=== PATIENT | female | born 1935 | race Caucasian/White ===

== ENCOUNTER 2021-02-19 11:40 | Inpatient (IN) | payer MEDICARE, OTHER ==
[~2021-02-19] VITALS: Ht 162.6 cm; Wt 74.8 kg
[2021-02-19 18:27] VITALS: BP 127/57
[2021-02-19] MEDS ORDERED: ATOR20TA PO (18:27)
[2021-02-19] MEDS ORDERED: MULT-439 PO (18:27)
[2021-02-19] MEDS ORDERED: OMEG1CAP PO (18:27)
[2021-02-19] MEDS ORDERED: THIA100T70 PO (18:27)
[2021-02-19] MEDS ORDERED: CHOL100062 PO (18:27)
[2021-02-19] MEDS ORDERED: VITA-354 PO (18:27)
[2021-02-19] MEDS ORDERED: VALS1TAB7 PO (18:27)
[2021-02-19] MEDS ORDERED: ENOX40DI SQ (18:27)
[2021-02-19] MEDS ORDERED: METO-356 PO (18:27)
--- NOTE | 2021-02-19 18:39 | NUR ---
Admitted patient from [facility] for acute rehab. Patient is alert and oriented x4. No respiratory distress noted. Routine admission care done. Dr. Michaud and Dr. Jara both notified of admission.
[2021-02-19] MEDS ORDERED: OXYCODONE HCL 5 MG TABLET PO PRN ×2 (18:45)
--- NOTE | 2021-02-19 19:25 | NUR ---
Patient is visiting with family at bedside. In no acute distress. Endorsed to next shift for continuity of care.
--- NOTE | 2021-02-19 19:30 | NUR ---
Patient in bed, awake, with family at bedside. No s/s of respiratory distress, no complaint of pain at this time. Routine admission care done. Plan of care initiated.
[2021-02-19 20:00] VITALS: BP 122/58
[2021-02-19] MEDS: ATORVASTATIN 20 MG TABLET PO SCH (21:00)
[2021-02-20 04:00] VITALS: BP 126/63
--- NOTE | 2021-02-20 05:37 | NUR ---
Shift End Report: VS stable. Slept well. Refused Atosvastatin due last night. No complaint presented all night. All needs attended and anticipated. No significant event reported. Continue care as planned.
[2021-02-20 08:52] VITALS: BP 125/59
[2021-02-20] MEDS ORDERED: HYDROCHLOROTHIAZIDE 12.5 MG CAPSULE PO SCH (09:00)
[2021-02-20] MEDS ORDERED: VALSARTAN 160 MG TABLET PO SCH (09:00)
[2021-02-20] MEDS ORDERED: Medication Not On Formulary EA (Valsartan/Hydrochlorothiazide (Diovan Hct 320-12.5 Mg Ta PO SCH (09:00)
[2021-02-20] MEDS: MULTIVITAMINS,THERAPEUTIC TABLET PO SCH (09:07)
[2021-02-20] MEDS: OMEGA-3 FATTY ACIDS/FISH OIL CAPSULE PO SCH (09:07)
[2021-02-20] MEDS: CHOLECALCIFEROL 1,000 UNIT TABLET PO SCH (09:07)
[2021-02-20] MEDS: THIAMINE HCL 100 MG TABLET PO SCH (09:07)
[2021-02-20] MEDS: METOPROLOL SUCCINATE XL 25 MG TAB.SR.24H PO SCH (09:09)
[2021-02-20] MEDS: VITAMIN E 400 UNITS CAPSULE PO SCH (09:09)
[2021-02-20] MEDS: ENOXAPARIN SODIUM 30 MG/0.3 ML DISP.SYRIN SUBCUT SCH (09:11)
[2021-02-20 15:26] VITALS: BP 103/47
[2021-02-20 20:07] VITALS: BP 129/57
[2021-02-20] MEDS: ATORVASTATIN 20 MG TABLET PO SCH (20:31)
[2021-02-20] MEDS: MORPHINE SULFATE SR 15 MG TABLET.SA PO SCH (20:31)
--- NOTE | 2021-02-21 03:36 | NUR ---
AAOx3-4 forgetful at times. VSS. No acute distress noted. Fall precautions maintained. Patient has a left hip ORIF by Dr Vu. Left hip dressing clean dry and intact. Pain meds given as scheduled. Tolerated well. No ill effects noted. Jay catheter intact draining yellow urine. I & O monitor.
[2021-02-21 04:45] VITALS: BP 140/62
[2021-02-21 07:03] LABS: HEMATOCRIT 31.3 % (31.2-41.9); MEAN CORPUSCULAR HEMOGLOBIN 30.4 uug (24.7-32.8); MEAN CORPUSCULAR VOLUME 90.5 fL (75.5-95.3); PLATELET COUNT (AUTO) 160 K/uL (179-408)
--- NOTE | 2021-02-21 07:15 | NUR ---
received patient in bed sleeping in stable position, no signs of any SOB, pain or discomfort noted at this time. call light within reach. fall precautions in place. will continue to monitor.
[2021-02-21 08:00] VITALS: BP 126/58
[2021-02-21 08:12] LABS: BILIRUBIN,TOTAL 1.2 mg/dL (0.2-1.0); CREATININE 1.1 mg/dL (0.6-1.3); MAGNESIUM 1.5 mg/dL (1.8-2.4); PHOSPHOROUS 1.9 mg/dL (2.5-4.9); POTASSIUM 4.1 mmol/L (3.5-5.1); TOTAL PROTEIN, SERUM 5.4 g/dL (6.4-8.2)
[2021-02-21 08:16] LABS: THYROID STIMULATING HORMONE 1.942 mIU/mL (0.358-3.740)
[2021-02-21] MEDS: THIAMINE HCL 100 MG TABLET PO SCH (08:43)
[2021-02-21] MEDS: CHOLECALCIFEROL 1,000 UNIT TABLET PO SCH (08:43)
[2021-02-21] MEDS: OMEGA-3 FATTY ACIDS/FISH OIL CAPSULE PO SCH (08:43)
[2021-02-21] MEDS: MULTIVITAMINS,THERAPEUTIC TABLET PO SCH (08:43)
[2021-02-21] MEDS: VITAMIN E 400 UNITS CAPSULE PO SCH (08:44)
[2021-02-21] MEDS: METOPROLOL SUCCINATE XL 25 MG TAB.SR.24H PO SCH (08:44)
[2021-02-21] MEDS: ENOXAPARIN SODIUM 30 MG/0.3 ML DISP.SYRIN SUBCUT SCH (08:45)
[2021-02-21] MEDS: MORPHINE SULFATE SR 15 MG TABLET.SA PO SCH ×2 (08:53→20:22)
[2021-02-21] MEDS ORDERED: MAGNESIUM OXIDE 400 MG TABLET PO ONE (10:00)
[2021-02-21] MEDS ORDERED: NEUTRA PHOS PACKET PO ONE (13:00)
[2021-02-21 16:34] LABS: EOSINOPHILS % (MANUAL) 1 % (0-8); LYMPHOCYTES % (MANUAL) 19 % (20-40); MONOCYTES % (MANUAL) 3 % (2-10); NEUTROPHILS % (MANUAL) 77 % (42-75)
[2021-02-21 16:48] VITALS: BP 104/48
[2021-02-21] MEDS: PROTEIN SUPPLEMENT (PROSTAT) 30 ML LIQUID PO SCH (16:52)
--- NOTE | 2021-02-21 18:15 | NUR ---
patient in bed sleeping but arousable. no complains of any SOB, pain or discomfort at this time. lopez catheter draining clear yellow urine. fall precautions in place. call light and belongings kept within reach. IV on right forearm intact and patent. will report to oncoming nurse.
[2021-02-21 20:51] VITALS: BP 109/49
--- NOTE | 2021-02-21 20:58 | NUR ---
awake upon initial rounds. AAOx2-3. Forgetful at times. VSS. Needs attended. All due meds given without difficulty. No acute distress noted. Jay catheter intact draining yellow urine. Right hip dressing clean dry and intact. Pain meds given as scheduled. Will monitor patient. Repositioned for comfort. Turned to sides.
[2021-02-22 04:22] VITALS: BP 121/58
[2021-02-22 06:46] LABS: CREATININE 1.2 mg/dL (0.6-1.3); MAGNESIUM 1.8 mg/dL (1.8-2.4); POTASSIUM 4.3 mmol/L (3.5-5.1)
--- NOTE | 2021-02-22 07:34 | NUR ---
Received awake, alert and oriented with some confusion. No respiratory distress. Jay catheter intact draining yellow urine. No hematuria noted. Right hip dressing clean and intact. Safety and fall precautions maintained. Call light in reach.
[2021-02-22 08:00] VITALS: BP 135/80
[2021-02-22] MEDS: THIAMINE HCL 100 MG TABLET PO SCH (08:50)
[2021-02-22] MEDS: CHOLECALCIFEROL 1,000 UNIT TABLET PO SCH (08:50)
[2021-02-22] MEDS: MULTIVITAMINS,THERAPEUTIC TABLET PO SCH (08:50)
[2021-02-22] MEDS: OMEGA-3 FATTY ACIDS/FISH OIL CAPSULE PO SCH (08:54)
[2021-02-22] MEDS: PROTEIN SUPPLEMENT (PROSTAT) 30 ML LIQUID PO SCH ×3 (08:55→17:09)
[2021-02-22] MEDS: MORPHINE SULFATE SR 15 MG TABLET.SA PO SCH (08:55)
[2021-02-22] MEDS: METOPROLOL SUCCINATE XL 25 MG TAB.SR.24H PO SCH (08:57)
[2021-02-22] MEDS: VITAMIN E 400 UNITS CAPSULE PO SCH (08:59)
[2021-02-22] MEDS: ENOXAPARIN SODIUM 30 MG/0.3 ML DISP.SYRIN SUBCUT SCH (09:00)
--- NOTE | 2021-02-22 11:00 | NUR ---
Spoke to dtr Esther and prefers for her mom not to have routine ms contin. Informed Dr. Jara.
[2021-02-22 12:00] VITALS: BP 126/42
[2021-02-22] MEDS ORDERED: OXYCODONE HCL 5 MG TABLET PO PRN ×2 (13:45)
--- NOTE | 2021-02-22 15:15 | NUR ---
INDIVIDUALIZED PLAN OF CARE
[2021-02-22 16:06] VITALS: BP 102/60
--- NOTE | 2021-02-22 18:56 | NUR ---
Patient is resting but easily arousable. In no acute distress. Jay catheter intact draining yellow urine. No hematuria noted. Due meds tolerated. Kept comfortable. Safety and fall precautions maintained. Needs attended.
[2021-02-22 20:00] VITALS: BP 128/54
[2021-02-22] MEDS ORDERED: MORPHINE SULFATE SR 15 MG TABLET.SA PO SCH (21:00)
[2021-02-23 04:50] VITALS: BP 130/55
[2021-02-23 08:00] VITALS: BP 121/48
[2021-02-23] MEDS: OMEGA-3 FATTY ACIDS/FISH OIL CAPSULE PO SCH (08:46)
[2021-02-23] MEDS: CHOLECALCIFEROL 1,000 UNIT TABLET PO SCH (08:46)
[2021-02-23] MEDS: MULTIVITAMINS,THERAPEUTIC TABLET PO SCH (08:46)
[2021-02-23] MEDS: THIAMINE HCL 100 MG TABLET PO SCH (08:46)
[2021-02-23] MEDS: VITAMIN E 400 UNITS CAPSULE PO SCH (08:51)
[2021-02-23] MEDS: PROPRANOLOL HCL 10 MG TABLET PO SCH ×4 (08:52→20:33)
[2021-02-23] MEDS: ENOXAPARIN SODIUM 30 MG/0.3 ML DISP.SYRIN SUBCUT SCH (08:53)
[2021-02-23] MEDS: PROTEIN SUPPLEMENT (PROSTAT) 30 ML LIQUID PO SCH ×3 (08:53→16:41)
[2021-02-23 09:03] LABS: HEMATOCRIT 34.4 % (31.2-41.9); MEAN CORPUSCULAR HEMOGLOBIN 29.9 uug (24.7-32.8); MEAN CORPUSCULAR VOLUME 90.7 fL (75.5-95.3); PLATELET COUNT (AUTO) 229 K/uL (179-408)
[2021-02-23 09:14] LABS: CREATININE 1.2 mg/dL (0.6-1.3); MAGNESIUM 1.7 mg/dL (1.8-2.4); PHOSPHOROUS 2.5 mg/dL (2.5-4.9); POTASSIUM 4.3 mmol/L (3.5-5.1); TOTAL PROTEIN, SERUM 5.9 g/dL (6.4-8.2)
[2021-02-23] MEDS: IV D5/ 0.9% NACL 1,000 ML IV PRN (09:30)
[2021-02-23] MEDS ORDERED: ACETAMINOPHEN 325 MG TABLET PO PRN (10:30)
--- NOTE | 2021-02-23 10:43 | NUR ---
daughter robbin called and said she does not want her mother Miss Velasco to get get any kind of pain medication such as oxy, only can give tylenol as needed, per daughter request dr jauregui made aware, discontinued oxy and started on tylenol per daughter request
[2021-02-23] MEDS: MAGNESIUM HYDROXIDE 30 ML LIQUID UDC PO PRN (14:18)
[2021-02-23] MEDS: ACETAMINOPHEN 325 MG TABLET PO SCH ×2 (15:03→21:03)
--- NOTE | 2021-02-23 15:42 | NUR ---
noted with nonblanchable redness to the left gluteal fold and blanchable to the right gluteal fold, also noted with open skin to right hip next to incision site, turned and repositioned patient in while in bed, patient is status post right hip surgery, incision site is clean and dry, well approximated, no malodor noted, no drainage noted from incision site, wound care consult in place, lopez catheter removed, will continue to monitor for voiding, patient is on hydration.
[2021-02-23 17:02] VITALS: BP 145/61
[2021-02-23 20:00] VITALS: BP 112/50
[2021-02-23 20:20] VITALS: BP 112/50
[2021-02-24] MEDS: IV D5/ 0.9% NACL 1,000 ML IV PRN ×2 (00:17→20:00)
[2021-02-24] MEDS: HYDROMORPHONE HCL 2 MG TABLET PO PRN (04:04)
[2021-02-24 04:09] VITALS: BP_SYST 141; BP_SYST 174; BP_DIAS 53; BP_DIAS 90
[2021-02-24] MEDS: ACETAMINOPHEN 325 MG TABLET PO SCH ×3 (05:29→21:23)
[2021-02-24 06:05] LABS: MEAN CORPUSCULAR HEMOGLOBIN 29.1 uug (24.7-32.8); MEAN CORPUSCULAR VOLUME 89.6 fL (75.5-95.3); PLATELET COUNT (AUTO) 250 K/uL (179-408)
[2021-02-24 06:28] LABS: CREATININE 1.2 mg/dL (0.6-1.3); MAGNESIUM 1.7 mg/dL (1.8-2.4); PHOSPHOROUS 1.6 mg/dL (2.5-4.9); POTASSIUM 3.9 mmol/L (3.5-5.1); TOTAL PROTEIN, SERUM 5.6 g/dL (6.4-8.2)
[2021-02-24 06:46] LABS: BILIRUBIN,TOTAL 1.1 mg/dL (0.2-1.0)
[2021-02-24 07:55] LABS: *BILIRUBIN,URIN NEGATIVE (NEGATIVE); *BLOOD, URINE TRACE (NEGATIVE); *CLARITY,URINE CLEAR (CLEAR); *COLOR,URINE YELLOW (YELLOW); *KETONES,URINE NEGATIVE (NEGATIVE); *UROBILINOGEN,URINE 0.2 E.U./dl (NORMAL); LEUKOCYTE ESTERASE ,URINE NEGATIVE (NEGATIVE); NITRITE, URINE NEGATIVE (NEGATIVE); UGLUCOSE NEGATIVE (NEGATIVE)
[2021-02-24 08:00] VITALS: BP 134/50
[2021-02-24] MEDS: MULTIVITAMINS,THERAPEUTIC TABLET PO SCH (08:29)
[2021-02-24] MEDS: OMEGA-3 FATTY ACIDS/FISH OIL CAPSULE PO SCH (08:29)
[2021-02-24] MEDS: FERROUS SULFATE 325 MG TABEC PO SCH (08:31)
[2021-02-24] MEDS: PROPRANOLOL HCL 10 MG TABLET PO SCH ×4 (08:31→20:43)
[2021-02-24] MEDS: CHOLECALCIFEROL 1,000 UNIT TABLET PO SCH (08:32)
[2021-02-24] MEDS: VITAMIN E 400 UNITS CAPSULE PO SCH (08:32)
[2021-02-24] MEDS: PROTEIN SUPPLEMENT (PROSTAT) 30 ML LIQUID PO SCH ×3 (08:32→16:51)
[2021-02-24] MEDS: ENOXAPARIN SODIUM 30 MG/0.3 ML DISP.SYRIN SUBCUT SCH (08:35)
[2021-02-24] MEDS: THIAMINE HCL 100 MG TABLET PO SCH (09:00)
[2021-02-24] MEDS ORDERED: MAGNESIUM OXIDE 400 MG TABLET PO ONE (09:15)
--- NOTE | 2021-02-24 09:41 | NUR ---
TELEPHONE BETTING CLERK (CAL) WAS CALLED IN FOR THIS ORDER. SHE ASKED ME TO TRANFER HER TO THE FLOOR SO SHE CAN TALK TO THE PATIENT'S NURSE.
[2021-02-24] MEDS ORDERED: PAMIDRONATE DISODIUM 60 MG in IV NORMAL SALINE 500 ML IV ONE (11:00)
[2021-02-24 12:32] LABS: BACTERIA,URINE FEW /HPF (NONE SEEN); SQUAMOUS EPITHELIAL CELL,UR FEW /HPF (NONE SEEN)
--- NOTE | 2021-02-24 15:08 | NUR ---
WOUND CARE CONSULT: PT OFF UNIT AT THIS TIME FOR PROCEDURE. DISCUSSED SKIN PROTECTION WITH NURSING STAFF. WILL SEE PT PT CONDITION PERMITS. IN AGREEMENT WITH PLAN OF CARE.
[2021-02-24] MEDS ORDERED: NEUTRA PHOS PACKET PO ONE (15:15)
[2021-02-24] MEDS: MAGNESIUM HYDROXIDE 30 ML LIQUID UDC PO PRN (16:50)
[2021-02-24] MEDS: ENSURE ENLIVE (VAN) 240 ML LIQUID PO SCH (16:51)
[2021-02-24 20:12] VITALS: BP 150/58
[2021-02-25] MEDS: HYDROMORPHONE HCL 2 MG TABLET PO PRN (02:22)
[2021-02-25 04:05] VITALS: BP 128/60
[2021-02-25] MEDS: ACETAMINOPHEN 325 MG TABLET PO SCH ×3 (05:18→22:13)
[2021-02-25] MEDS: PANTOPRAZOLE SODIUM 40 MG TABLET.DR PO SCH (06:15)
[2021-02-25] MEDS: IV D5/ 0.9% NACL 1,000 ML IV PRN (06:15)
[2021-02-25 06:32] LABS: MEAN CORPUSCULAR HEMOGLOBIN 29.2 uug (24.7-32.8); MEAN CORPUSCULAR VOLUME 89.3 fL (75.5-95.3); PLATELET COUNT (AUTO) 250 K/uL (179-408)
[2021-02-25 06:48] LABS: POTASSIUM 4.1 mmol/L (3.5-5.1)
[2021-02-25 08:00] VITALS: BP 156/69
[2021-02-25] MEDS: CHOLECALCIFEROL 1,000 UNIT TABLET PO SCH (08:53)
[2021-02-25] MEDS: OMEGA-3 FATTY ACIDS/FISH OIL CAPSULE PO SCH (08:53)
[2021-02-25] MEDS: THIAMINE HCL 100 MG TABLET PO SCH (08:53)
[2021-02-25] MEDS: MULTIVITAMINS,THERAPEUTIC TABLET PO SCH (08:53)
[2021-02-25] MEDS: FERROUS SULFATE 325 MG TABEC PO SCH (08:53)
[2021-02-25] MEDS: PROPRANOLOL HCL 10 MG TABLET PO SCH ×4 (08:53→20:48)
[2021-02-25] MEDS: PROTEIN SUPPLEMENT (PROSTAT) 30 ML LIQUID PO SCH ×3 (08:54→17:13)
[2021-02-25] MEDS: ENSURE ENLIVE (VAN) 240 ML LIQUID PO SCH ×2 (08:54→17:13)
[2021-02-25] MEDS: VITAMIN E 400 UNITS CAPSULE PO SCH (08:54)
[2021-02-25] MEDS: ENOXAPARIN SODIUM 30 MG/0.3 ML DISP.SYRIN SUBCUT SCH (08:55)
[2021-02-25] MEDS ORDERED: BISACODYL 10 MG SUPP.RECT RC PRN (09:15)
[2021-02-25 10:58] LABS: *OCCULT BLOOD STOOL NEGATIVE (NEGATIVE)
--- NOTE | 2021-02-25 12:52 | NUR ---
WOUND CARE CONSULT: PT PRESENTS WITH SURGICAL SITES TO RT HIP AND THIGH WITH ELIOT AND EDEMA WITH SKIN TEARS NOTED NEAR CLOSED INCISIONS. PT ALSO NOTED TO HAVE INCONTINENCE ASSOCIATED SKIN DAMAGE TO LEFT BUTTOCK, NOT ON A BONY AREA. RECOMMENDATIONS MADE FOR SKIN PROTECTION AND WOUND CARE. DISCUSSED WITH NURSING STAFF. DEFER TO ORTHO SURGEON FOR CLOSED INCISIONS WITH ELIOT. MD IN AGREEMENT WITH PLAN OF CARE. Addendum: 02/25/21 at 1254 by YULIET MCCALLUM RN Amended: Links added.
--- NOTE | 2021-02-25 14:00 | NUR ---
INTERDISCIPLINARY TEAM CONFERENCE
--- NOTE | 2021-02-25 14:50 | NUR ---
Patient is alert at times, goes back to sleep, able to sit in the chair in the morning, assisted to go the bathroom, had large BM today, however poor po intake, encouraged to eat and drink, drinks water and goes back to sleep, continue on IV fluids as ordered,
--- NOTE | 2021-02-25 15:07 | NUR ---
Dr Jara ordered to transfer patient to [facility] unit, paged dr taveras hospitalist for order
[2021-02-25] MEDS ORDERED: NEUTRA PHOS PACKET PO ONE (16:30)
[2021-02-25] MEDS ORDERED: SODIUM PHOSPHATE MM 15 MMOL in IV NORMAL SALINE 250 ML IV ONE (16:30)
[2021-02-25 16:57] VITALS: BP 146/47
--- NOTE | 2021-02-25 17:19 | NUR ---
Will clinical case manager and dr taveras spoke to each other and suggested SNF for patient , daughter made aware that will clinical case manager will call her tomorrow for further plan of care
--- NOTE | 2021-02-25 17:23 | NUR ---
assessed patient for level of consciousness, patient stated she is in [facility] [place], knows her daughter and sons names. patient is very alert for a minute and confuse another minute, per daughter robbin it started in [facility]. since this admission patient noted in and out of it.
[2021-02-25] MEDS ORDERED: PAMIDRONATE DISODIUM 60 MG in IV NORMAL SALINE 500 ML IV ONE (18:00)
--- NOTE | 2021-02-25 19:21 | NUR ---
dr taveras is aware about CT scan result
--- NOTE | 2021-02-25 19:50 | NUR ---
patient stated she is in pain in her right leg, repositioned, ice applied, tried to make patient comfortable as much as possible, however daughter insisted not to give any other medication to patient for pain, except tylenol, try educate the patient and daughter about pain management, medication intervention per dr jauregui orders, daughter robbin strongly refused to give anything stronger to patient for pain, md jauregui aware. will continue with nonpharmacological interventions such as repositioning, ice, distraction, and tylenol as ordered to make patient comfortable.
[2021-02-25 20:00] VITALS: BP_SYST 115; BP_SYST 164; BP_DIAS 66; BP_DIAS 70
[2021-02-26] MEDS: IV D5/ 0.9% NACL 1,000 ML IV PRN ×2 (02:24→14:13)
[2021-02-26 04:50] VITALS: BP 130/56
[2021-02-26] MEDS: ACETAMINOPHEN 325 MG TABLET PO SCH ×3 (05:38→21:24)
[2021-02-26] MEDS: PANTOPRAZOLE SODIUM 40 MG TABLET.DR PO SCH (05:56)
[2021-02-26 05:57] LABS: PHOSPHOROUS 1.7 mg/dL (2.5-4.9); POTASSIUM 3.6 mmol/L (3.5-5.1)
--- NOTE | 2021-02-26 06:20 | NUR ---
Shift End Report: Vs stable. Slept fairly, confused and disoriented, trying to get out of bed very often. Close physical and visual supervision rendered. Safety measures and fall prevention maintained. All needs attended and met. Turned and repositioned as needed to sides and as tolerated. All needs attended and met. Continue current rehab plan of care.
[2021-02-26 08:00] VITALS: BP 109/64
[2021-02-26] MEDS: PROPRANOLOL HCL 10 MG TABLET PO SCH ×4 (09:00→21:00)
[2021-02-26] MEDS: OMEGA-3 FATTY ACIDS/FISH OIL CAPSULE PO SCH (09:26)
[2021-02-26] MEDS: MULTIVITAMINS,THERAPEUTIC TABLET PO SCH (09:26)
[2021-02-26] MEDS: MODAFINIL 100 MG TABLET PO SCH (09:26)
[2021-02-26] MEDS: FERROUS SULFATE 325 MG TABEC PO SCH (09:26)
[2021-02-26] MEDS: CHOLECALCIFEROL 1,000 UNIT TABLET PO SCH (09:26)
[2021-02-26] MEDS: THIAMINE HCL 100 MG TABLET PO SCH (09:26)
[2021-02-26] MEDS: ENOXAPARIN SODIUM 30 MG/0.3 ML DISP.SYRIN SUBCUT SCH (09:29)
[2021-02-26] MEDS: VITAMIN E 400 UNITS CAPSULE PO SCH (09:29)
[2021-02-26] MEDS: ENSURE ENLIVE (VAN) 240 ML LIQUID PO SCH ×2 (10:02→17:20)
[2021-02-26] MEDS: PROTEIN SUPPLEMENT (PROSTAT) 30 ML LIQUID PO SCH ×3 (10:02→17:17)
[2021-02-26] MEDS ORDERED: CALCITONIN SALMON 400 UNIT/2 ML SQ SCH (11:00)
--- NOTE | 2021-02-26 14:26 | NUR ---
Per Radiology Dept, they don't do ultrasound of parathyroid. Informed Dr. Jc, no need to do ultrasound d/t calcium getting lower and will just do an outpatient ultrasound.
[2021-02-26] MEDS: CALCITONIN,SALMON,SYNTHETIC 3.7 ML SPRAY.PUMP NS SCH (14:43)
[2021-02-26 15:13] VITALS: BP 139/64
[2021-02-26] MEDS ORDERED: NEUTRA PHOS PACKET PO ONE (16:30)
[2021-02-26] MEDS ORDERED: SODIUM PHOSPHATE MM 15 MMOL in IV NORMAL SALINE 250 ML IV ONE (18:00)
--- NOTE | 2021-02-26 18:49 | NUR ---
Received patient awake on bed with no respiratory distress noted. Alert and oriented x3-4, with episode of confusion. Turning and repositioning done as needed. Kept clean, dry, and comfortable at all times. IV site dressing changed, no s/sx of infiltration noted. Will continue to monitor.
[2021-02-26 20:00] VITALS: BP 106/51
[2021-02-27 04:00] VITALS: BP 136/56
[2021-02-27] MEDS: IV D5/ 0.9% NACL 1,000 ML IV PRN (05:34)
[2021-02-27 06:10] LABS: HEMATOCRIT 26.8 % (31.2-41.9); MEAN CORPUSCULAR HEMOGLOBIN 29.6 uug (24.7-32.8); MEAN CORPUSCULAR VOLUME 89.5 fL (75.5-95.3); PLATELET COUNT (AUTO) 268 K/uL (179-408)
[2021-02-27] MEDS: PANTOPRAZOLE SODIUM 40 MG TABLET.DR PO SCH (06:11)
[2021-02-27] MEDS: ACETAMINOPHEN 325 MG TABLET PO SCH ×3 (06:11→21:12)
[2021-02-27 06:47] LABS: CREATININE 0.9 mg/dL (0.6-1.3); MAGNESIUM 1.5 mg/dL (1.8-2.4); PHOSPHOROUS 1.8 mg/dL (2.5-4.9); POTASSIUM 3.6 mmol/L (3.5-5.1)
[2021-02-27 08:24] VITALS: BP 139/56
[2021-02-27 09:07] LABS: CALCITRIOL VIT D,1,25 DIHYDROX 26.4 pg/mL (19.9-79.3)
[2021-02-27] MEDS: FERROUS SULFATE 325 MG TABEC PO SCH (09:19)
[2021-02-27] MEDS: THIAMINE HCL 100 MG TABLET PO SCH (09:19)
[2021-02-27] MEDS: MODAFINIL 100 MG TABLET PO SCH (09:19)
[2021-02-27] MEDS: MULTIVITAMINS,THERAPEUTIC TABLET PO SCH (09:19)
[2021-02-27] MEDS: OMEGA-3 FATTY ACIDS/FISH OIL CAPSULE PO SCH (09:21)
[2021-02-27] MEDS: VITAMIN E 400 UNITS CAPSULE PO SCH (09:21)
[2021-02-27] MEDS: PROPRANOLOL HCL 10 MG TABLET PO SCH ×4 (09:21→20:08)
[2021-02-27] MEDS: ENOXAPARIN SODIUM 30 MG/0.3 ML DISP.SYRIN SUBCUT SCH (09:29)
[2021-02-27] MEDS: ENSURE ENLIVE (VAN) 240 ML LIQUID PO SCH ×2 (09:30→17:12)
[2021-02-27] MEDS: PROTEIN SUPPLEMENT (PROSTAT) 30 ML LIQUID PO SCH ×3 (09:30→17:12)
[2021-02-27] MEDS: CALCITONIN,SALMON,SYNTHETIC 3.7 ML SPRAY.PUMP NS SCH (09:32)
[2021-02-27] MEDS ORDERED: MAGNESIUM OXIDE 400 MG TABLET PO ONE (11:15)
[2021-02-27 15:40] VITALS: BP 145/81
[2021-02-27 15:43] VITALS: BP 145/81
[2021-02-27] MEDS ORDERED: NEUTRA PHOS PACKET PO ONE (16:15)
[2021-02-27 20:00] VITALS: BP 121/55
--- NOTE | 2021-02-27 23:45 | NUR ---
PATIENT AWAKE IN BED, C/O INSOMNIA AND UNABLE TO SLEEP. CALLED OUT TO JONO AGUILAR NP FOR FURTHER ORDERS. RECEIVED ORDER FOR RESTORIL 7.5MG PO PRN FOR SLEEP. ALL NEEDS ATTENDED. WILL CONTINUE TO MONITOR AND ASSESS.
[2021-02-27] MEDS: TEMAZEPAM 7.5 MG CAPSULE PO PRN (23:59)
[2021-02-28 04:00] VITALS: BP 143/63
[2021-02-28] MEDS: ACETAMINOPHEN 325 MG TABLET PO SCH ×3 (06:07→21:32)
[2021-02-28] MEDS: PANTOPRAZOLE SODIUM 40 MG TABLET.DR PO SCH (06:07)
--- NOTE | 2021-02-28 06:42 | NUR ---
PATIENT AWAKE IN BED. SLEPT AT INTERVALS. VSS. BED ALARM ON. CALL LIGHT IN REACH. ALL NEEDS ATTENDED. WILL CONTINUE TO MONITOR AND ASSESS.
[2021-02-28 07:51] LABS: CREATININE 0.9 mg/dL (0.6-1.3); PHOSPHOROUS 2.2 mg/dL (2.5-4.9); POTASSIUM 3.7 mmol/L (3.5-5.1)
[2021-02-28 08:06] VITALS: BP 138/51
[2021-02-28] MEDS: FERROUS SULFATE 325 MG TABEC PO SCH (08:35)
[2021-02-28] MEDS: OMEGA-3 FATTY ACIDS/FISH OIL CAPSULE PO SCH (08:35)
[2021-02-28] MEDS: THIAMINE HCL 100 MG TABLET PO SCH (08:35)
[2021-02-28] MEDS: PROPRANOLOL HCL 10 MG TABLET PO SCH ×4 (08:35→20:30)
[2021-02-28] MEDS: MODAFINIL 100 MG TABLET PO SCH (08:35)
[2021-02-28] MEDS: MULTIVITAMINS,THERAPEUTIC TABLET PO SCH (08:35)
[2021-02-28] MEDS: CALCITONIN,SALMON,SYNTHETIC 3.7 ML SPRAY.PUMP NS SCH (08:36)
[2021-02-28] MEDS: PROTEIN SUPPLEMENT (PROSTAT) 30 ML LIQUID PO SCH ×3 (08:36→17:09)
[2021-02-28] MEDS: VITAMIN E 400 UNITS CAPSULE PO SCH (08:36)
[2021-02-28] MEDS: ENSURE ENLIVE (VAN) 240 ML LIQUID PO SCH ×2 (08:36→17:08)
[2021-02-28] MEDS: ENOXAPARIN SODIUM 30 MG/0.3 ML DISP.SYRIN SUBCUT SCH (08:47)
[2021-02-28] MEDS ORDERED: METHYL SALICYLATE/MENTHOL CREAM 28 GM TUBE TOP PRN (12:45)
[2021-02-28] MEDS ORDERED: NEUTRA PHOS PACKET PO ONE (15:30)
[2021-02-28 15:36] VITALS: BP 105/46
[2021-02-28 20:00] VITALS: BP 125/50
[2021-02-28] MEDS: TEMAZEPAM 7.5 MG CAPSULE PO PRN (23:32)
[2021-03-01 04:00] VITALS: BP 126/54
[2021-03-01] MEDS: ACETAMINOPHEN 325 MG TABLET PO SCH (05:38)
[2021-03-01] MEDS: PANTOPRAZOLE SODIUM 40 MG TABLET.DR PO SCH (05:39)
[2021-03-01 08:00] VITALS: BP 137/57
[2021-03-01] MEDS: THIAMINE HCL 100 MG TABLET PO SCH (08:05)
[2021-03-01] MEDS: MULTIVITAMINS,THERAPEUTIC TABLET PO SCH (08:05)
[2021-03-01] MEDS: OMEGA-3 FATTY ACIDS/FISH OIL CAPSULE PO SCH (08:05)
[2021-03-01] MEDS: FERROUS SULFATE 325 MG TABEC PO SCH (08:05)
[2021-03-01] MEDS: MODAFINIL 100 MG TABLET PO SCH (08:05)
[2021-03-01] MEDS: ENOXAPARIN SODIUM 30 MG/0.3 ML DISP.SYRIN SUBCUT SCH (08:05)
[2021-03-01 08:07] VITALS: BP 137/57
[2021-03-01] MEDS: PROTEIN SUPPLEMENT (PROSTAT) 30 ML LIQUID PO SCH (08:07)
[2021-03-01] MEDS: PROPRANOLOL HCL 10 MG TABLET PO SCH (08:07)
[2021-03-01] MEDS: ENSURE ENLIVE (VAN) 240 ML LIQUID PO SCH (08:09)
[2021-03-01] MEDS: CALCITONIN,SALMON,SYNTHETIC 3.7 ML SPRAY.PUMP NS SCH (08:11)
[2021-03-01] MEDS: VITAMIN E 400 UNITS CAPSULE PO SCH (09:20)
--- NOTE | 2021-03-01 12:30 | NUR ---
Patient is discharge to [facility]. supervisor finishing room by [facility] via [facility] and daughter and son. Body assessment done, norma were cleanse by NS pat dry and leave open to air with no s/s of infection and no redness noted. VS WNL. Sacral area covered with mepilex PER ORDER. Continue all meds ordered by Armen Cavazos DNP. Dr Jara order for Acetaminophen with Codein half tablet BID PRN as discharge prescription. Family made aware. All belongings given. VS WNL. Patient denies of any pain or discomfort. Discharge instructions given. Report given to "FARRAH" in [facility]. Addendum: 03/01/21 at 1335 by ARAM ALDRICH RN RN Patient is discharge to the unit and going to [facility]. Picked up by [facility] via [facility] and daughter and son. Body assessment done, norma were cleanse by NS pat dry and leave open to air with no s/s of infection and no redness noted. VS WNL. Sacral area covered with mepilex PER ORDER. Continue all meds ordered by Armen Cavazos DNP. Dr Jara order for Acetaminophen with Codein half tablet BID PRN as discharge prescription. Family made aware. All belongings given. VS WNL. Patient denies of any pain or discomfort. Discharge instructions given. Report given to "FARRAH" in [facility].
== END 2021-03-01 12:50 | DRG 559 ==
PROVIDERS: ADMIT Internal Medicine; ATTEND Physical Medicine & Rehabilitation Pain Medicine
DX: S72.21XD Displaced subtrochanteric fracture of right femur, subsequent encounter for closed fracture with routine healing (principal); E43 Unspecified severe protein-calorie malnutrition; N17.0 Acute kidney failure with tubular necrosis; D68.59 Other primary thrombophilia; D62 Acute posthemorrhagic anemia; I13.0 Hypertensive heart and chronic kidney disease with heart failure and stage 1 through stage 4 chronic kidney disease, or unspecified chronic kidney disease; I50.32 Chronic diastolic (congestive) heart failure; E21.0 Primary hyperparathyroidism; E66.9 Obesity, unspecified; Z68.28 Body mass index [BMI] 28.0-28.9, adult; E78.5 Hyperlipidemia, unspecified; I12.9 Hypertensive chronic kidney disease with stage 1 through stage 4 chronic kidney disease, or unspecified chronic kidney disease; M16.11 Unilateral primary osteoarthritis, right hip; M81.0 Age-related osteoporosis without current pathological fracture; N18.9 Chronic kidney disease, unspecified; W01.0XXD Fall on same level from slipping, tripping and stumbling without subsequent striking against object, subsequent encounter; Z87.891 Personal history of nicotine dependence; M25.461 Effusion, right knee; E86.0 Dehydration; E87.8 Other disorders of electrolyte and fluid balance, not elsewhere classified
CPT/HCPCS: 36415; 70030-TC; 70450; 73501; 73502; 82378; 82652; 83550; 83735; 83970; 84100; 84443; 85025; 87086; A4663; A9500; C1758; J1650; J2430; J7030; J7040; J7042